=== PATIENT | female | born 1995 | race Caucasian/White ===

== ENCOUNTER 2016-12-20 15:04 | Emergency (ER) | payer OTHER ==
[2016-12-20 15:16] VITALS: TEMP 98.2
--- NOTE | 2016-12-20 16:11 | EDPHY ---
H & P Time Seen by Provider: 12/20/16 15:30 HPI/ROS: CHIEF COMPLAINT: Scalp laceration HISTORY OF PRESENT ILLNESS: 21-year-old female presents to the emergency department with scalp laceration. The patient was with a friend sitting on top of his shoulder and he fell and she hit the top of her head on the ground. She did not lose consciousness. She denies a headache. Denies neck or back pain. Denies chest pain or difficulty breathing. No visual complaints. No nausea or vomiting. Denies injury to upper or lower extremities. She believes her tetanus shot is current. REVIEW OF SYSTEMS: Constitutional: No fever, no chills. Eyes: No double or blurry vision. ENT: No sore throat. Respiratory: No cough, no shortness of breath. Cardiac: No chest pain. Gastrointestinal: No abdominal pain, vomiting or diarrhea. Genitourinary: No dysuria. Musculoskeletal: No neck or back pain. Skin: Scalp laceration. No rashes. Neurological: No headache. Past Medical/Surgical History: Negative Social History: [employer] student Smoking Status: Never smoked Physical Exam: General Appearance: Alert, no distress. Mentating normally and answering questions appropriately. Friend at bedside. Eyes: Pupils equal and round. Extraocular motions are all intact. ENT: Mouth: Mucous membranes moist. No hemotympanum. No dental injury or malocclusion. Respiratory: No wheezing, rhonchi, or rales, lungs are clear to auscultation. Cardiovascular: Regular rate and rhythm. Gastrointestinal: Abdomen is soft and nontender, no masses, no rebound or guarding, bowel sounds normal. Neurological: Alert and oriented x 3, cranial nerves II through XII grossly intact Skin: 3 cm scalp laceration to the crown of the head. No active bleeding noted. No evidence of depressed skull fracture. Warm and dry, no rashes. Musculoskeletal: Nontender to palpate along the cervical, thoracic or lumbar spine. Neck is supple. Extremities: Full range of motion and no peripheral edema. Psychiatric: Patient is oriented X 3, there is no agitation. Constitutional: Initial Vital Signs Temperature (C) 36.8 C 12/20/16 15:13 Heart Rate 105 H 12/20/16 15:13 Respiratory Rate 20 12/20/16 15:13 Blood Pressure 103/84 H 12/20/16 15:13 O2 Sat (%) 97 12/20/16 15:13 O2 Delivery Mode Room Air Allergies/Adverse Reactions: No Known Allergies Allergy (Unverified 12/20/16 15:12) Home Medications: Medication Instructions Recorded Ortho Tri-Cyclen 28 Tablet 12/20/16 Medical Decision Making Procedures: Laceration repair. Verbal consent was obtained from the patient. The 2.5 cm laceration on the scalp was anesthetized using 1% lidocaine with epinephrine. The wound was irrigated with saline, draped and explored to its base with a gloved finger. There were no deep structures involved. The wound was repaired with 8 emily. The wound repair was simple. The procedure was performed by myself. ED Course/Re-evaluation: 21-year-old female presents to the emergency department with scalp laceration. She did not lose consciousness. She has a normal neurologic examination. I discussed the pros and cons of CT imaging of her brain including radiation exposure the patient agrees with not performing CT scan. She was instructed to avoid any activity that might put her at risk for another head injury for at least 1 week. She was given wound precautions as well as head injury precautions. Differential Diagnosis: Head injury including but not limited to concussion, skull fracture, intraparenchymal contusion, subarachnoid, subdural and epidural hematoma. Departure - Departure Disposition: Home, Routine, Self-Care Clinical Impression: Scalp laceration Qualifiers: Encounter type: initial encounter Qualified Code(s): S01.01XA - Laceration without foreign body of scalp, initial encounter Head injury Qualifiers: Encounter type: initial encounter Qualified Code(s): S09.90XA - Unspecified injury of head, initial encounter Condition: Good Instructions: Care For Your Stitches (ED), Laceration (ED), Head Injury (ED), Acute Wounds (ED) Additional Instructions: Wound Care Follow-Up: Removal of sutures in 7 days. Suture removal is complimentary in uncomplicated cases. Infection or abnormal findings would require reevaluation by the MD. In that case, you may be billed. Return to the emergency department if you develop worsening headache, vomiting, altered mental status, or if you feel worse in any way. Avoid any activity that might put you at risk for another head injury for at least 1 week. Do not drink alcohol or any other mind-altering drugs for at least 1 week and your symptoms have completely resolved.
[2016-12-20 16:28] VITALS: BP 124/65; PULSE 85; RESP 16; O2SAT 96
== END 2016-12-20 16:28 | disposition home or self-care (01) ==
PROC: 0HQ0XZZ Repair Scalp Skin, External Approach (ICD-10-PCS; principal; 2016-12-20)
DX: S01.01XA Laceration without foreign body of scalp, initial encounter (principal); W22.8XXA Striking against or struck by other objects, initial encounter